=== PATIENT | male | born 1975 | race Caucasian/White ===

== ENCOUNTER 2017-06-29 19:53 | Inpatient (IN) | payer OTHER ==
[~2017-06-29] VITALS: Ht 172.7 cm; Wt 67.1 kg
[2017-06-29 19:55] VITALS: O2SAT 99
[2017-06-29] MEDS ORDERED: GENTAMICIN 80 MG PREMIX 100 ML ONE (19:58)
[2017-06-29] MEDS ORDERED: DIPHTH/TETANUS/ACEL PERTUSSIS (BOOSTER) 0.5 ML VIAL/PFS IM ONE (19:58)
[2017-06-29] MEDS ORDERED: ceFAZolin 2 GM PREMIX 50 ML ONE (19:58)
[2017-06-29] MEDS ORDERED: ROCURONIUM INJ 50 MG/5 ML VIAL ONE (20:14)
[2017-06-29] MEDS ORDERED: ETOMIDATE 20 MG/10 ML VIAL ONE (20:14)
[2017-06-29 20:15] LABS: AUTOMATED NEUTROPHIL # 7.6 TH/MM3 (1.8-7.7); BASOPHIL # 0.1 TH/MM3 (0-0.2); BASOPHIL % 1.1 % (0.0-2.0); EOSINOPHIL # 0.2 TH/MM3 (0-0.4); EOSINOPHIL % 1.3 % (0.0-4.0); HEMATOCRIT 45.6 % (39.0-51.0); HEMOGLOBIN 16.2 GM/DL (13.0-17.0); LYMPH % 37.7 % (9.0-44.0); LYMPHOCYTE # 5.2 TH/MM3 (1.0-4.8); MEAN CELL VOLUME 91.2 FL (80.0-100.0); MEAN CORPUSCULAR HEMOGLOBIN 32.4 PG (27.0-34.0); MEAN CORPUSCULAR HGB CONC 35.5 % (32.0-36.0); MEAN PLATELET VOLUME 7.8 FL (7.0-11.0); MONO % 5.5 % (0.0-8.0); MONOCYTE # 0.8 TH/MM3 (0-0.9); NEUT % 54.4 % (16.0-70.0); PLATELET COUNT 345 TH/MM3 (150-450); RED CELL DISTRIBUTION WIDTH 13.2 % (11.6-17.2); WHITE BLOOD COUNT 13.9 TH/MM3 (4.0-11.0)
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
[2017-06-29 20:39] VITALS: O2SAT 100
[2017-06-29 20:45] LABS: PROTHROMBIN TIME - PATIENT 10.5 SEC (9.8-11.6)
[2017-06-29] MEDS ORDERED: MISCELLANEOUS NURSING INFORMATION XX SCH (20:45)
[2017-06-29] MEDS ORDERED: LACTULOSE SYRUP 20 GM/30 ML CUP PO PRN (20:45)
[2017-06-29] MEDS ORDERED: MAGNESIUM HYDROXIDE SUSP 30 ML CUP PO PRN (20:45)
[2017-06-29] MEDS ORDERED: BISACODYL 10 MG SUPP RECTAL PRN (20:45)
[2017-06-29] MEDS ORDERED: fentaNYL DRIP 250 ML IV PRN ×3 (20:45→21:45)
[2017-06-29] MEDS ORDERED: CHLORHEXIDINE GLUCONATE 2 % 1 PACK (2 CLOTHS) TOP PRN (20:45)
[2017-06-29] MEDS ORDERED: SENNOSIDES 8.6 MG TAB PO PRN (20:45)
[2017-06-29] MEDS ORDERED: PROPOFOL 1000 MG/100 ML INJ 100 ML IV PRN ×3 (20:45→23:45)
[2017-06-29] MEDS ORDERED: IOHEXOL 350 MG/ML 10 ML VIAL (for RAD DIAG) IVCONTRAST ONE (20:53)
[2017-06-29] MEDS: DOCUSATE SODIUM 50 MG/SENNA 8.6 MG TAB PO SCH (21:00)
[2017-06-29 21:10] VITALS: O2SAT 100
[2017-06-29] MEDS ORDERED: POTASSIUM PHOSPHATE MONOBASIC 500 MG TAB PO PRN ×2 (21:15→21:45)
[2017-06-29] MEDS ORDERED: POTASSIUM PHOSPHATE INJ 30 MMOL in SODIUM CHLOR 0.9% 250 ML INJ 250 ML IV PRN ×2 (21:15→21:45)
[2017-06-29] MEDS ORDERED: POTASSIUM CHLOR 40 MEQ PREMIX 100 ML IV PRN ×4 (21:15→21:45)
[2017-06-29] MEDS ORDERED: MAGNESIUM SULFATE INJ 2 GM in SODIUM CHLORIDE 0.9% INJ 96 ML IV PRN ×2 (21:15→21:45)
[2017-06-29] MEDS ORDERED: SODIUM PHOSPHATE INJ 30 MMOL in SODIUM CHLOR 0.9% 250 ML INJ 240 ML IV PRN ×2 (21:15→21:45)
[2017-06-29] MEDS ORDERED: levETIRAcetam INJ 500 MG in SODIUM CHLORIDE 0.9% INJ 100 ML IV SCH (21:15)
[2017-06-29] MEDS ORDERED: MAGNESIUM SULFATE INJ 4 GM in SODIUM CHLORIDE 0.9% INJ 92 ML IV PRN ×2 (21:15→21:45)
[2017-06-29] MEDS ORDERED: MAGNESIUM OXIDE 400 MG TAB PO PRN ×2 (21:15→21:45)
[2017-06-29] MEDS ORDERED: POTASSIUM CHLOR 20 MEQ PREMIX 100 ML IV PRN ×3 (21:15→21:45)
[2017-06-29] MEDS ORDERED: POTASSIUM PHOSPHATE MONOBASIC 500 MG TAB PO/TUBE PRN ×2 (21:15→21:45)
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
[2017-06-29] MEDS ORDERED: POTASSIUM CHLORIDE 25 MEQ EFFERVESCENT TAB PO PRN (21:45)
[2017-06-29] MEDS ORDERED: MIDAZOLAM 100 MG/100 ML INJ 100 ML IV PRN (21:45)
[2017-06-29 22:00] VITALS: BP 109/58; PULSE 100; RESP 16; TEMP 97.7; O2SAT 100
[2017-06-29 22:10] LABS: MAGNESIUM 2.1 MG/DL (1.5-2.5); PHOSPHORUS 3.5 MG/DL (2.5-4.9)
[2017-06-29] MEDS: MIDAZOLAM 100 MG/100 ML INJ 100 ML IV PRN (23:12)
[2017-06-29] MEDS: fentaNYL DRIP 250 ML IV PRN (23:13)
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
[2017-06-29] MEDS ORDERED: PROPOFOL 1000 MG/100 ML IV PRN (23:30)
[2017-06-29] MEDS: levETIRAcetam INJ 500 MG in SODIUM CHLORIDE 0.9% INJ 100 ML IV SCH (23:36)
[2017-06-29] MEDS: FAMOTIDINE 20 MG/2 ML VIAL IV PUSH SCH (23:36)
[2017-06-29] MEDS: cefTRIAXone INJ 1,000 MG in SODIUM CHLORIDE 0.9% INJ 100 ML IV SCH (23:36)
[2017-06-30] VITALS (17 sets, daily range): BP systolic 95–108; BP diastolic 54–66; PULSE 68–90; RESP 16–20; TEMP 97.2–99.1; O2SAT 100
[2017-06-30] MEDS: PROPOFOL 1000 MG/100 ML INJ 100 ML IV PRN ×5 (00:20→21:19)
[2017-06-30] MEDS: SODIUM CHLOR 0.9% 1000 ML INJ 1,000 ML IV SCH ×2 (00:20→08:37)
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
[2017-06-30] MEDS ORDERED: SODIUM BICARBONATE 8.4% INJ 150 MEQ in DEXTROSE 5% IN WATE 1000ML INJ 1,000 ML IV SCH ×2 (02:00)
[2017-06-30] MEDS: CHLORHEXIDINE GLUCONATE 2 % 1 PACK (2 CLOTHS) TOP SCH (04:00)
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
[2017-06-30 05:23] LABS: AUTOMATED NEUTROPHIL # 9.3 TH/MM3 (1.8-7.7); BASOPHIL % 0.2 % (0.0-2.0); EOSINOPHIL % 0.4 % (0.0-4.0); HEMATOCRIT 39.7 % (39.0-51.0); HEMOGLOBIN 13.8 GM/DL (13.0-17.0); LYMPH % 15.8 % (9.0-44.0); MEAN CELL VOLUME 92.1 FL (80.0-100.0); MEAN CORPUSCULAR HEMOGLOBIN 32.1 PG (27.0-34.0); MEAN CORPUSCULAR HGB CONC 34.9 % (32.0-36.0); MEAN PLATELET VOLUME 7.9 FL (7.0-11.0); MONO % 10.6 % (0.0-8.0); MONOCYTE # 1.4 TH/MM3 (0-0.9); PLATELET COUNT 274 TH/MM3 (150-450); RED BLOOD COUNT 4.31 MIL/MM3 (4.50-5.90); RED CELL DISTRIBUTION WIDTH 13.2 % (11.6-17.2); WHITE BLOOD COUNT 12.7 TH/MM3 (4.0-11.0)
[2017-06-30 05:31] LABS: PROTHROMBIN TIME - PATIENT 10.6 SEC (9.8-11.6)
[2017-06-30 05:57] LABS: BICARBONATE 28.4 MEQ/L (21.0-32.0); CALCIUM 7.9 MG/DL (8.5-10.1); CREATININE 0.75 MG/DL (0.60-1.30); MAGNESIUM 1.9 MG/DL (1.5-2.5)
[2017-06-30] MEDS: POTASSIUM CHLOR 20 MEQ PREMIX 100 ML IV PRN ×2 (06:41→09:15)
[2017-06-30] MEDS: levETIRAcetam INJ 500 MG in SODIUM CHLORIDE 0.9% INJ 100 ML IV SCH ×2 (08:35→21:22)
[2017-06-30] MEDS: CHLORHEXIDINE 0.12% (ORAL KIT) 15 ML CUP MT SCH ×2 (08:36→20:00)
[2017-06-30] MEDS: FAMOTIDINE 20 MG/2 ML VIAL IV PUSH SCH ×2 (08:36→21:20)
[2017-06-30] MEDS: DOCUSATE SODIUM 50 MG/SENNA 8.6 MG TAB PO SCH ×2 (08:37→21:20)
[2017-06-30] MEDS ORDERED: RESP: ALBUTEROL 2.5 MG/IPRATROPIUM 0.5 MG NEB (PRN) NEB (08:45)
[2017-06-30] MEDS: RESP: ALBUTEROL 2.5 MG/IPRATROPIUM 0.5 MG NEB (SCH) NEB ×3 (09:38→20:33)
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
[2017-06-30] MEDS: cefTRIAXone INJ 1,000 MG in SODIUM CHLORIDE 0.9% INJ 100 ML IV SCH (11:55)
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
[2017-06-30] MEDS: SODIUM CHLORIDE 23.4% INJ 188 MEQ in SODIUM CHLOR 0.9% 1000 ML INJ 1,000 ML IV SCH (14:10)
[2017-06-30] MEDS: fentaNYL DRIP 250 ML IV PRN ×2 (14:11→14:13)
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
[2017-06-30] MEDS: MIDAZOLAM 100 MG/100 ML INJ 100 ML IV PRN (21:21)
[2017-07-01] VITALS (19 sets, daily range): BP systolic 96–104; BP diastolic 54–60; PULSE 66–86; RESP 20; TEMP 98.1–98.4; O2SAT 100
[2017-07-01] MEDS: cefTRIAXone INJ 1,000 MG in SODIUM CHLORIDE 0.9% INJ 100 ML IV SCH ×3 (00:54→23:08)
[2017-07-01] MEDS: CHLORHEXIDINE GLUCONATE 2 % 1 PACK (2 CLOTHS) TOP SCH (01:02)
[2017-07-01] MEDS: RESP: ALBUTEROL 2.5 MG/IPRATROPIUM 0.5 MG NEB (SCH) NEB ×4 (02:59→20:07)
[2017-07-01] MEDS: PROPOFOL 1000 MG/100 ML INJ 100 ML IV PRN ×5 (03:30→23:47)
--- NOTE | 2017-07-01 04:52 | RADRPT ---
EXAM DATE/TIME: 07/01/2017 03:01 [facility] COMPARISON: CHEST SINGLE AP, June 30, 2017, 2:48. INDICATIONS : Short of breath. MEDICAL HISTORY : None. SURGICAL HISTORY : None. ENCOUNTER: Subsequent ACUITY: 2 days PAIN SCORE: 0/10 LOCATION: Bilateral chest FINDINGS: ET tube tip well above the jorge. Gastric tube tip and side-port project within the stomach. The l ungs are symmetrically aerated and clear. The heart is normal in size. Both hemidiaphragms are obli que. CONCLUSION: The lungs are clear. Moses Ward MD on July 01, 2017 at 4:51 Board Certified Radiologist. This report was verified electronically.
[2017-07-01] MEDS: fentaNYL DRIP 250 ML IV PRN (06:01)
[2017-07-01] MEDS: CHLORHEXIDINE 0.12% (ORAL KIT) 15 ML CUP MT SCH ×2 (07:28→20:00)
[2017-07-01] MEDS: FAMOTIDINE 20 MG/2 ML VIAL IV PUSH SCH ×2 (09:42→20:52)
[2017-07-01] MEDS: levETIRAcetam INJ 500 MG in SODIUM CHLORIDE 0.9% INJ 100 ML IV SCH ×2 (09:43→20:52)
[2017-07-01] MEDS: DOCUSATE SODIUM 50 MG/SENNA 8.6 MG TAB PO SCH ×2 (09:43→20:52)
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
[2017-07-01] MEDS ORDERED: SODIUM CHLOR 0.9% 1000 ML INJ 1,000 ML IV ONE (10:30)
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
[2017-07-01 14:57] LABS: AUTOMATED NEUTROPHIL # 7.1 TH/MM3 (1.8-7.7); BASOPHIL % 0.3 % (0.0-2.0); EOSINOPHIL # 0.2 TH/MM3 (0-0.4); EOSINOPHIL % 2.1 % (0.0-4.0); HEMATOCRIT 36.6 % (39.0-51.0); HEMOGLOBIN 12.9 GM/DL (13.0-17.0); LYMPHOCYTE # 1.2 TH/MM3 (1.0-4.8); MEAN CELL VOLUME 92.6 FL (80.0-100.0); MEAN CORPUSCULAR HEMOGLOBIN 32.7 PG (27.0-34.0); MEAN CORPUSCULAR HGB CONC 35.3 % (32.0-36.0); MEAN PLATELET VOLUME 7.6 FL (7.0-11.0); MONO % 9.4 % (0.0-8.0); MONOCYTE # 0.9 TH/MM3 (0-0.9); NEUT % 75.2 % (16.0-70.0); PLATELET COUNT 229 TH/MM3 (150-450); RED BLOOD COUNT 3.95 MIL/MM3 (4.50-5.90); RED CELL DISTRIBUTION WIDTH 13.4 % (11.6-17.2); WHITE BLOOD COUNT 9.5 TH/MM3 (4.0-11.0)
[2017-07-01 15:18] LABS: ALBUMIN 2.6 GM/DL (3.4-5.0); ALT (GPT) 19 U/L (12-78); AST (GOT) 36 U/L (15-37); BICARBONATE 25.6 MEQ/L (21.0-32.0); BLOOD UREA NITROGEN 10 MG/DL (7-18); CALCIUM 7.9 MG/DL (8.5-10.1); CHLORIDE 115 MEQ/L (98-107); CREATININE 0.58 MG/DL (0.60-1.30); GLOMERULAR FILTRATION RATE 155 ML/MIN (>89); GLUCOSE,RANDOM 86 MG/DL (74-106); SODIUM (NA) 147 MEQ/L (136-145)
[2017-07-01 15:21] LABS: ALKALINE PHOSPHATASE 66 U/L (45-117); TOTAL BILIRUBIN ADULT 0.4 MG/DL (0.2-1.0); TOTAL PROTEIN 5.4 GM/DL (6.4-8.2)
[2017-07-01] MEDS: POTASSIUM CHLORIDE 20 MEQ PWD PACKET PO PRN (17:01)
[2017-07-01] MEDS: SODIUM CHLORIDE 23.4% INJ 188 MEQ in SODIUM CHLOR 0.9% 1000 ML INJ 1,000 ML IV SCH (17:15)
[2017-07-01] MEDS: SODIUM CHLOR 0.9% 1000 ML INJ 1,000 ML IV SCH (17:55)
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
[2017-07-02] VITALS (18 sets, daily range): BP systolic 104–138; BP diastolic 56–81; PULSE 80–130; RESP 20–22; TEMP 98–100.5; O2SAT 97–100
[2017-07-02] MEDS: RESP: ALBUTEROL 2.5 MG/IPRATROPIUM 0.5 MG NEB (SCH) NEB ×4 (03:14→20:46)
[2017-07-02] MEDS: SODIUM CHLOR 0.9% 1000 ML INJ 1,000 ML IV SCH ×3 (04:00→23:17)
[2017-07-02] MEDS: CHLORHEXIDINE GLUCONATE 2 % 1 PACK (2 CLOTHS) TOP SCH (04:00)
[2017-07-02] MEDS: PROPOFOL 1000 MG/100 ML INJ 100 ML IV PRN ×4 (04:15→17:44)
[2017-07-02 04:37] LABS: AUTOMATED NEUTROPHIL # 10.2 TH/MM3 (1.8-7.7); BASOPHIL % 0.4 % (0.0-2.0); EOSINOPHIL % 0.4 % (0.0-4.0); HEMATOCRIT 39.8 % (39.0-51.0); HEMOGLOBIN 13.6 GM/DL (13.0-17.0); LYMPH % 8.8 % (9.0-44.0); MEAN CELL VOLUME 92.8 FL (80.0-100.0); MEAN CORPUSCULAR HEMOGLOBIN 31.6 PG (27.0-34.0); MEAN CORPUSCULAR HGB CONC 34.1 % (32.0-36.0); MEAN PLATELET VOLUME 7.8 FL (7.0-11.0); MONO % 4.7 % (0.0-8.0); MONOCYTE # 0.6 TH/MM3 (0-0.9); NEUT % 85.7 % (16.0-70.0); PLATELET COUNT 235 TH/MM3 (150-450); RED BLOOD COUNT 4.29 MIL/MM3 (4.50-5.90); RED CELL DISTRIBUTION WIDTH 13.5 % (11.6-17.2); WHITE BLOOD COUNT 11.9 TH/MM3 (4.0-11.0)
[2017-07-02 05:03] LABS: ALBUMIN 2.8 GM/DL (3.4-5.0); ALT (GPT) 24 U/L (12-78); AST (GOT) 44 U/L (15-37); BICARBONATE 23.3 MEQ/L (21.0-32.0); BLOOD UREA NITROGEN 8 MG/DL (7-18); CALCIUM 8.2 MG/DL (8.5-10.1); CHLORIDE 115 MEQ/L (98-107); CREATININE 0.74 MG/DL (0.60-1.30); GLOMERULAR FILTRATION RATE 117 ML/MIN (>89); GLUCOSE,RANDOM 108 MG/DL (74-106); SODIUM (NA) 147 MEQ/L (136-145)
[2017-07-02 05:05] LABS: ALKALINE PHOSPHATASE 73 U/L (45-117); TOTAL BILIRUBIN ADULT 0.4 MG/DL (0.2-1.0); TOTAL PROTEIN 6.2 GM/DL (6.4-8.2)
--- NOTE | 2017-07-02 06:44 | RADRPT ---
EXAM DATE/TIME: 07/02/2017 05:01 [facility] COMPARISON: CHEST SINGLE AP, July 01, 2017, 3:01. INDICATIONS : Short of breath. MEDICAL HISTORY : None. SURGICAL HISTORY : None. ENCOUNTER: Subsequent ACUITY: 3 days PAIN SCORE: Non-responsive. LOCATION: Bilateral chest FINDINGS: ET tube well above the jorge. Gastric tube tip and side-port project within the stomach. Interval development of patchy non-consolidative infiltrates in the right infrahilar region. The left lung is clear. Both hemidiaphragms are well delineated. The heart is normal size. CONCLUSION: Interval development of patchy right infrahilar infiltrate. Moses Ward MD on July 02, 2017 at 6:42 Board Certified Radiologist. This report was verified electronically.
[2017-07-02] MEDS: CHLORHEXIDINE 0.12% (ORAL KIT) 15 ML CUP MT SCH ×2 (08:00→20:00)
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
[2017-07-02] MEDS: FAMOTIDINE 20 MG/2 ML VIAL IV PUSH SCH ×2 (08:29→20:59)
[2017-07-02] MEDS: levETIRAcetam INJ 500 MG in SODIUM CHLORIDE 0.9% INJ 100 ML IV SCH ×2 (08:29→20:59)
[2017-07-02] MEDS: MIDAZOLAM 100 MG/100 ML INJ 100 ML IV PRN (08:30)
[2017-07-02] MEDS: DOCUSATE SODIUM 50 MG/SENNA 8.6 MG TAB PO SCH ×2 (08:30→20:59)
[2017-07-02 10:16] LABS: BACTERIA, URINE RARE /hpf; BILIRUBIN, URINE NEG (NEG); BLOOD, URINE NEG (NEG); GLUCOSE,URINE NEG (NEG); KETONE, URINE 80 mg/dL (NEG); NITRITE,URINE NEG (NEG); PH, URINE 5.5 (5.0-8.5); URINE COLOR YELLOW (YELLW/STRAW); URINE LEUKOCYTE ESTERASE NEG (NEG)
--- NOTE | 2017-07-02 10:23 | RADRPT ---
EXAM DATE/TIME: 07/02/2017 09:57 [place] COMPARISON: CT BRAIN W/O CONTRAST, July 01, 2017, 12:56. INDICATIONS : Follow up trauma. RADIATION DOSE: 56.35 CTDIvol (mGy) MEDICAL HISTORY : None SURGICAL HISTORY : None. ENCOUNTER: Subsequent ACUITY: 3 days PAIN SCALE: Non-responsive LOCATION: cranial TECHNIQUE: Multiple contiguous axial images were obtained of the head. Using automated exposure control and adj ustment of the mA and/or kV according to patient size, radiation dose was kept as low as reasonably a chievable to obtain optimal diagnostic quality images. DICOM format image data is available electro nically for review and comparison. FINDINGS: Today's exam is compared to the prior study of 07/01/2017. There continues to be a hemorrhagic contusi ons involving the right frontal temporal lobe. The hemorrhagic contusions are stable with some surrou nding edema compared to the prior study. There continues to be some subarachnoid hemorrhage along the cervical vertex bilaterally. There is a small right-sided subdural which is stable measuring approxi mately 4 mm in width. This is overlying the right frontal temporal region. There is a stable left-yuki ed subdural hematoma. The widest portion measures approximately 8 mm along the left posterior parieta l region. There continues to be some droplets of intracranial air within the left-sided subdural thiago ajay adjacent to the left-sided skull fractures. The ventricles remain normal in size. There is no si gnificant mass effect or midline shift. The posterior fossa is stable and unremarkable. No new areas of hemorrhage are demonstrated. Compared to the prior exam there've been no new or significant change s. CONCLUSION: 1. Stable followup CT scan of the brain compared to the prior exam of 07/01/2017. 2. The hemorrhagic contusions involving the right frontal temporal lobe are stable. 3. The small bilateral subdural hematomas are stable 4. No new areas of intracranial hemorrhage are demonstrated. Hermilo Bojorquez MD on July 02, 2017 at 10:15 Board Certified Radiologist. This report was verified electronically.
[2017-07-02] MEDS: BACITRACIN TOP OINT 15 GM TUBE TOPICAL SCH ×2 (10:45→20:59)
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
--- NOTE | 2017-07-02 12:19 | ECHRPT ---
Indication: S/P TRAUMA CONCLUSIONS Normal left ventricular size. Wall thickness is normal. The left ventricular systolic function is normal with an estimated ejection fraction in the range of 60-65%. BP: 97 / 54 HR: 68 Rhythm: Sinus MEASUREMENTS (Male / Female) Normal Values Technical Quality:Fair 2D ECHO LV Diastolic Diameter PLAX 4.6 cm 4.2 - 5.9 / 3.9 - 5.3 cm LV Systolic Diameter PLAX 3.3 cm IVS Diastolic Thickness 1.0 cm 0.6 - 1.0 / 0.6 - 0.9 cm LVPW Diastolic Thickness 1.0 cm 0.6 - 1.0 / 0.6 - 0.9 cm LV Relative Wall Thickness 0.4 RV Internal Dim ED PLAX 2.5 cm LVOT Diameter 1.7 cm Aortic Root Diameter 2.8 cm LA Systolic Diameter LX 2.6 cm 3.0 - 4.0 / 2.7 - 3.8 cm DOPPLER AV Peak Velocity 149.0 cm/s AV Peak Gradient 8.9 mmHg AV Mean Gradient 4.0 mmHg AV Velocity Time Integral 21.0 cm LVOT Peak Velocity 131.0 cm/s LVOT Peak Gradient 6.9 mmHg LVOT Velocity Time Integral 19.2 cm AV Area Cont Eq vti 2.1 cm AV Area Cont Eq pk 2.0 cm Mitral E Point Velocity 118.0 cm/s Mitral A Point Velocity 70.1 cm/s Mitral E to A Ratio 1.7 LV E' Lateral Velocity 21.2 cm/s Mitral E to LV E' Lateral Ratio 5.6 LV E' Septal Velocity 14.6 cm/s Mitral E to LV E' Septal Ratio 8.1 PV Peak Velocity 82.0 cm/s PV Peak Gradient 2.7 mmHg FINDINGS LEFT VENTRICLE Normal left ventricular size. Wall thickness is normal. The left ventricular systolic function is normal with an estimated ejection fraction in the range of 60-65%. RIGHT VENTRICLE The right ventricular size is normal. LEFT ATRIUM The left atrial size is normal. RIGHT ATRIUM The right atrial size is normal. ATRIAL SEPTUM No atrial level shunt is demonstrated by color flow Doppler interrogation. AORTA The aortic root and proximal ascending aorta are not well visualized. MITRAL VALVE Structurally normal mitral valve. No mitral valve stenosis or regurgitation. AORTIC VALVE Trileaflet aortic valve. No aortic valve stenosis or regurgitation. TRICUSPID VALVE Structurally normal tricuspid valve. No tricuspid valve stenosis or regurgitation. PULMONARY VALVE No pulmonary valve regurgitation or stenosis. VESSELS The inferior vena cava is normal in size. PERICARDIUM No pericardial effusion. Lei Purvis MD, FACC (Electronically Signed) Final Date:02 July 2017 12:18
[2017-07-02] MEDS: cefTRIAXone INJ 1,000 MG in SODIUM CHLORIDE 0.9% INJ 100 ML IV SCH ×2 (12:24→23:15)
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
[2017-07-02] MEDS: SODIUM CHLORIDE 23.4% INJ 188 MEQ in SODIUM CHLOR 0.9% 1000 ML INJ 1,000 ML IV SCH (17:00)
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
[2017-07-03] VITALS (17 sets, daily range): BP systolic 109–139; BP diastolic 8–81; PULSE 52–104; RESP 13–24; TEMP 98.4–99.2; O2SAT 95–100
[2017-07-03] MEDS: PROPOFOL 1000 MG/100 ML INJ 100 ML IV PRN ×4 (00:45→16:41)
[2017-07-03] MEDS: CHLORHEXIDINE GLUCONATE 2 % 1 PACK (2 CLOTHS) TOP SCH (02:41)
[2017-07-03] MEDS: RESP: ALBUTEROL 2.5 MG/IPRATROPIUM 0.5 MG NEB (SCH) NEB ×3 (03:56→14:40)
[2017-07-03] MEDS: fentaNYL DRIP 250 ML IV PRN ×2 (04:51→16:41)
--- NOTE | 2017-07-03 05:58 | RADRPT ---
EXAM DATE/TIME: 07/03/2017 04:38 [place] COMPARISON: CHEST SINGLE AP, July 02, 2017, 5:01. INDICATIONS : Shortness of breath. MEDICAL HISTORY : None. SURGICAL HISTORY : None. ENCOUNTER: Subsequent ACUITY: 4 - 6 days PAIN SCORE: Non-responsive. LOCATION: Bilateral chest FINDINGS: ET tube tip well above the jorge. Gastric tube tip and side-port project within the stomach. There is increasing consolidation in the left and lower lung with loss of delineation of the medial left h emidiaphragm. Patchy infiltrates in the right perihilar region have also increased. CONCLUSION: Increasing infiltrates in bilateral hilar region and left lower lobe. Moses Ward MD on July 03, 2017 at 5:55 Board Certified Radiologist. This report was verified electronically.
[2017-07-03 06:06] LABS: AUTOMATED NEUTROPHIL # 10.7 TH/MM3 (1.8-7.7); BASOPHIL % 0.3 % (0.0-2.0); EOSINOPHIL # 0.1 TH/MM3 (0-0.4); EOSINOPHIL % 0.6 % (0.0-4.0); HEMATOCRIT 33.4 % (39.0-51.0); HEMOGLOBIN 11.6 GM/DL (13.0-17.0); LYMPH % 9.5 % (9.0-44.0); LYMPHOCYTE # 1.2 TH/MM3 (1.0-4.8); MEAN CELL VOLUME 92.6 FL (80.0-100.0); MEAN CORPUSCULAR HEMOGLOBIN 32.3 PG (27.0-34.0); MEAN CORPUSCULAR HGB CONC 34.9 % (32.0-36.0); MONO % 6.7 % (0.0-8.0); MONOCYTE # 0.9 TH/MM3 (0-0.9); NEUT % 82.9 % (16.0-70.0); PLATELET COUNT 220 TH/MM3 (150-450); RED CELL DISTRIBUTION WIDTH 13.3 % (11.6-17.2)
[2017-07-03 06:31] LABS: ALBUMIN 2.2 GM/DL (3.4-5.0); ALT (GPT) 33 U/L (12-78); AST (GOT) 52 U/L (15-37); BICARBONATE 23.9 MEQ/L (21.0-32.0); CHLORIDE 116 MEQ/L (98-107); CREATININE 0.63 MG/DL (0.60-1.30); GLOMERULAR FILTRATION RATE 141 ML/MIN (>89); GLUCOSE,RANDOM 142 MG/DL (74-106); SODIUM (NA) 147 MEQ/L (136-145)
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
[2017-07-03 06:38] LABS: ALKALINE PHOSPHATASE 77 U/L (45-117); BLOOD UREA NITROGEN 8 MG/DL (7-18); TOTAL BILIRUBIN ADULT 0.4 MG/DL (0.2-1.0); TOTAL PROTEIN 5.6 GM/DL (6.4-8.2)
[2017-07-03] MEDS: CHLORHEXIDINE 0.12% (ORAL KIT) 15 ML CUP MT SCH ×2 (08:00→20:00)
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
[2017-07-03] MEDS: MAGNESIUM HYDROXIDE SUSP 30 ML CUP PO SCH ×3 (09:00→21:20)
[2017-07-03] MEDS: BACITRACIN TOP OINT 15 GM TUBE TOPICAL SCH ×2 (09:00→21:00)
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
[2017-07-03] MEDS ORDERED: HALOPERIDOL LACTATE 5 MG/ML AMP IV PRN (10:15)
[2017-07-03] MEDS: LACTULOSE SYRUP 20 GM/30 ML CUP PO SCH (10:50)
[2017-07-03] MEDS: DOCUSATE SODIUM 50 MG/SENNA 8.6 MG TAB PO SCH ×2 (10:50→21:00)
[2017-07-03] MEDS: cefTRIAXone INJ 1,000 MG in SODIUM CHLORIDE 0.9% INJ 100 ML IV SCH (10:50)
[2017-07-03] MEDS: FAMOTIDINE 20 MG/2 ML VIAL IV PUSH SCH ×2 (10:50→21:20)
[2017-07-03] MEDS: levETIRAcetam INJ 500 MG in SODIUM CHLORIDE 0.9% INJ 100 ML IV SCH ×2 (10:51→21:19)
[2017-07-03] MEDS: VALPROIC ACID SYRUP 250 MG/5 ML UDC PO SCH ×2 (10:53→21:20)
[2017-07-03] MEDS: SODIUM CHLORIDE 23.4% INJ 188 MEQ in SODIUM CHLOR 0.9% 1000 ML INJ 1,000 ML IV SCH (15:00)
[2017-07-03] MEDS: QUEtiapine FUMARATE 25 MG TAB PO SCH ×2 (15:11→21:21)
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
[2017-07-04] VITALS (17 sets, daily range): BP systolic 113–127; BP diastolic 55–69; PULSE 56–82; RESP 12–20; TEMP 98–100.5; O2SAT 94–100
[2017-07-04] MEDS: cefTRIAXone INJ 1,000 MG in SODIUM CHLORIDE 0.9% INJ 100 ML IV SCH ×3 (01:00→23:51)
[2017-07-04] MEDS: PROPOFOL 1000 MG/100 ML INJ 100 ML IV PRN ×3 (01:53→18:30)
[2017-07-04] MEDS: RESP: ALBUTEROL 2.5 MG/IPRATROPIUM 0.5 MG NEB (SCH) NEB ×2 (03:32→07:57)
[2017-07-04] MEDS: CHLORHEXIDINE GLUCONATE 2 % 1 PACK (2 CLOTHS) TOP SCH (03:53)
--- NOTE | 2017-07-04 04:02 | RADRPT ---
EXAM DATE/TIME: 07/04/2017 02:49 [place] COMPARISON: CHEST SINGLE AP, July 03, 2017, 4:38. INDICATIONS : Follow up trauma. Short of breath. MEDICAL HISTORY : None. SURGICAL HISTORY : None. ENCOUNTER: Subsequent ACUITY: 4 - 6 days PAIN SCORE: Non-responsive. LOCATION: Bilateral chest FINDINGS: ET tube tip well above the jorge. Gastric tube tip and side-port project within the stomach. There is persistent bilateral lower lobe consolidation, stable from prior. There is also loss of delineat ion of the right hemidiaphragm suggesting coexistent pleural effusion. The heart is normal size. CONCLUSION: Persistent left lower lung consolidation and increasing opacity in the right lower lung suggesting in creasing pleural effusion. Moses Ward MD on July 04, 2017 at 3:59 Board Certified Radiologist. This report was verified electronically.
[2017-07-04 05:01] LABS: AUTOMATED NEUTROPHIL # 10.9 TH/MM3 (1.8-7.7); BASOPHIL % 0.3 % (0.0-2.0); EOSINOPHIL # 0.2 TH/MM3 (0-0.4); EOSINOPHIL % 1.2 % (0.0-4.0); HEMATOCRIT 34.3 % (39.0-51.0); HEMOGLOBIN 11.7 GM/DL (13.0-17.0); LYMPH % 9.6 % (9.0-44.0); LYMPHOCYTE # 1.3 TH/MM3 (1.0-4.8); MEAN CELL VOLUME 93.4 FL (80.0-100.0); MEAN CORPUSCULAR HEMOGLOBIN 31.9 PG (27.0-34.0); MEAN CORPUSCULAR HGB CONC 34.1 % (32.0-36.0); MEAN PLATELET VOLUME 8.1 FL (7.0-11.0); MONO % 5.7 % (0.0-8.0); MONOCYTE # 0.7 TH/MM3 (0-0.9); NEUT % 83.2 % (16.0-70.0); PLATELET COUNT 224 TH/MM3 (150-450); RED BLOOD COUNT 3.67 MIL/MM3 (4.50-5.90); RED CELL DISTRIBUTION WIDTH 13.4 % (11.6-17.2); WHITE BLOOD COUNT 13.1 TH/MM3 (4.0-11.0)
[2017-07-04 05:27] LABS: ALBUMIN 2.1 GM/DL (3.4-5.0); AST (GOT) 58 U/L (15-37); BLOOD UREA NITROGEN 10 MG/DL (7-18); CHLORIDE 114 MEQ/L (98-107); GLOMERULAR FILTRATION RATE 149 ML/MIN (>89); GLUCOSE,RANDOM 172 MG/DL (74-106); SODIUM (NA) 149 MEQ/L (136-145)
[2017-07-04 05:30] LABS: ALKALINE PHOSPHATASE 86 U/L (45-117); ALT (GPT) 60 U/L (12-78); TOTAL BILIRUBIN ADULT 0.3 MG/DL (0.2-1.0); TOTAL PROTEIN 5.7 GM/DL (6.4-8.2)
[2017-07-04] MEDS: QUEtiapine FUMARATE 25 MG TAB PO SCH ×3 (06:22→21:33)
[2017-07-04] MEDS: MIDAZOLAM 100 MG/100 ML INJ 100 ML IV PRN (07:07)
[2017-07-04] MEDS: fentaNYL DRIP 250 ML IV PRN (07:09)
[2017-07-04] MEDS: CHLORHEXIDINE 0.12% (ORAL KIT) 15 ML CUP MT SCH ×2 (08:00→20:00)
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
[2017-07-04] MEDS: levETIRAcetam INJ 500 MG in SODIUM CHLORIDE 0.9% INJ 100 ML IV SCH ×2 (09:00→21:33)
[2017-07-04] MEDS: MAGNESIUM HYDROXIDE SUSP 30 ML CUP PO SCH ×2 (09:00→21:34)
[2017-07-04] MEDS: BACITRACIN TOP OINT 15 GM TUBE TOPICAL SCH ×2 (09:00→21:35)
[2017-07-04] MEDS: FAMOTIDINE 20 MG/2 ML VIAL IV PUSH SCH ×2 (10:00→21:32)
[2017-07-04] MEDS: LACTULOSE SYRUP 20 GM/30 ML CUP PO SCH (10:00)
[2017-07-04] MEDS: VALPROIC ACID SYRUP 250 MG/5 ML UDC PO SCH ×2 (10:00→21:34)
[2017-07-04] MEDS: DOCUSATE SODIUM 50 MG/SENNA 8.6 MG TAB PO SCH ×2 (10:01→21:32)
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
[2017-07-04] MEDS: ENOXAPARIN SODIUM 40 MG/0.4 ML SYRINGE SQ SCH (13:21)
[2017-07-04] MEDS: SODIUM CHLORIDE 23.4% INJ 188 MEQ in SODIUM CHLOR 0.9% 1000 ML INJ 1,000 ML IV SCH (15:00)
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
[2017-07-05] VITALS (19 sets, daily range): BP systolic 119–140; BP diastolic 63–73; PULSE 47–85; RESP 20; TEMP 98.6–100.3; O2SAT 94–100
[2017-07-05] MEDS: fentaNYL DRIP 250 ML IV PRN ×2 (00:18→18:28)
[2017-07-05] MEDS: PROPOFOL 1000 MG/100 ML INJ 100 ML IV PRN ×4 (00:18→19:10)
[2017-07-05] MEDS: POTASSIUM CHLORIDE 20 MEQ PWD PACKET PO PRN (02:21)
[2017-07-05] MEDS: CHLORHEXIDINE GLUCONATE 2 % 1 PACK (2 CLOTHS) TOP SCH (04:00)
--- NOTE | 2017-07-05 04:48 | RADRPT ---
EXAM DATE/TIME: 07/05/2017 03:15 [facility] COMPARISON: CHEST SINGLE AP, July 04, 2017, 2:49. INDICATIONS : Follow up trauma, pleural effusion. MEDICAL HISTORY : None. SURGICAL HISTORY : None. ENCOUNTER: Subsequent ACUITY: 1 week PAIN SCORE: Non-responsive. LOCATION: Bilateral chest FINDINGS: A single AP semierect portable view of the chest was obtained and again demonstrates the endotracheal tube in place with the tip 3 cm above the jorge. The nasogastric tube remains in place. Hazy perihi lar and bibasilar opacities remain without change. The heart size is within normal limits. There is n o visualized pneumothorax. Multiple overlying electrocardiogram leads and oxygen tubing are noted. CONCLUSION: No significant change. Galen Francis MD on July 05, 2017 at 4:45 Board Certified Radiologist. This report was verified electronically.
[2017-07-05 04:58] LABS: AUTOMATED NEUTROPHIL # 8.9 TH/MM3 (1.8-7.7); BASOPHIL % 0.3 % (0.0-2.0); EOSINOPHIL # 0.4 TH/MM3 (0-0.4); EOSINOPHIL % 3.2 % (0.0-4.0); HEMATOCRIT 32.6 % (39.0-51.0); HEMOGLOBIN 11.2 GM/DL (13.0-17.0); LYMPHOCYTE # 1.8 TH/MM3 (1.0-4.8); MEAN CELL VOLUME 92.9 FL (80.0-100.0); MEAN CORPUSCULAR HEMOGLOBIN 31.9 PG (27.0-34.0); MEAN CORPUSCULAR HGB CONC 34.3 % (32.0-36.0); MEAN PLATELET VOLUME 8.2 FL (7.0-11.0); MONO % 8.9 % (0.0-8.0); MONOCYTE # 1.1 TH/MM3 (0-0.9); NEUT % 72.6 % (16.0-70.0); PLATELET COUNT 243 TH/MM3 (150-450); RED BLOOD COUNT 3.52 MIL/MM3 (4.50-5.90); RED CELL DISTRIBUTION WIDTH 13.7 % (11.6-17.2); WHITE BLOOD COUNT 12.2 TH/MM3 (4.0-11.0)
[2017-07-05 05:22] LABS: AST (GOT) 49 U/L (15-37); BICARBONATE 25.5 MEQ/L (21.0-32.0); BLOOD UREA NITROGEN 12 MG/DL (7-18); CHLORIDE 116 MEQ/L (98-107); GLOMERULAR FILTRATION RATE 149 ML/MIN (>89); GLUCOSE,RANDOM 109 MG/DL (74-106); SODIUM (NA) 150 MEQ/L (136-145)
[2017-07-05 05:23] LABS: ALT (GPT) 59 U/L (12-78)
[2017-07-05 05:25] LABS: ALKALINE PHOSPHATASE 98 U/L (45-117); TOTAL BILIRUBIN ADULT 0.3 MG/DL (0.2-1.0); TOTAL PROTEIN 5.9 GM/DL (6.4-8.2)
[2017-07-05] MEDS: QUEtiapine FUMARATE 25 MG TAB PO SCH (06:02)
[2017-07-05] MEDS: CHLORHEXIDINE 0.12% (ORAL KIT) 15 ML CUP MT SCH ×2 (08:00→20:02)
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
[2017-07-05] MEDS: FAMOTIDINE 20 MG/2 ML VIAL IV PUSH SCH ×2 (08:57→20:09)
[2017-07-05] MEDS: VALPROIC ACID SYRUP 250 MG/5 ML UDC PO SCH ×2 (08:57→20:09)
[2017-07-05] MEDS: LACTULOSE SYRUP 20 GM/30 ML CUP PO SCH (08:57)
[2017-07-05] MEDS: MAGNESIUM HYDROXIDE SUSP 30 ML CUP PO SCH ×2 (08:57→20:10)
[2017-07-05] MEDS: DOCUSATE SODIUM 50 MG/SENNA 8.6 MG TAB PO SCH ×2 (08:57→20:10)
[2017-07-05] MEDS: levETIRAcetam INJ 500 MG in SODIUM CHLORIDE 0.9% INJ 100 ML IV SCH ×2 (08:57→20:09)
[2017-07-05] MEDS: BACITRACIN TOP OINT 15 GM TUBE TOPICAL SCH ×2 (09:00→20:10)
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
[2017-07-05] MEDS ORDERED: MIDAZOLAM HCL 5 MG/ML VIAL (1 ML) ONE (11:29)
[2017-07-05] MEDS: CEFEPIME INJ 2,000 MG in SODIUM CHLORIDE 0.9% INJ 100 ML IV SCH ×2 (11:44→22:17)
[2017-07-05] MEDS ORDERED: MIDAZOLAM HCL 2 MG/2 ML VIAL IV PUSH ONE (12:15)
[2017-07-05] MEDS: QUEtiapine FUMARATE 100 MG TAB PO SCH ×2 (14:00→21:14)
[2017-07-05] MEDS: SODIUM CHLORIDE 23.4% INJ 188 MEQ in SODIUM CHLOR 0.9% 1000 ML INJ 1,000 ML IV SCH (15:00)
[2017-07-05] MEDS: ENOXAPARIN SODIUM 40 MG/0.4 ML SYRINGE SQ SCH (15:58)
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
--- NOTE | 2017-07-05 18:26 | EKG ---
Date Performed: 07/05/2017 Time Performed: 11:00:12 PTAGE: 41 years EKG: Sinus rhythm Inferior/lateral ST-T changes are nonspecific Borderline ECG NO PREVIOUS TRACING DOCTOR: Juan Carlos Levy Interpretating Date/Time 07/05/2017 18:25:34
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
[2017-07-05] MEDS: HALOPERIDOL LACTATE 5 MG/ML AMP IV PRN (22:18)
[2017-07-06] VITALS (14 sets, daily range): BP systolic 113–147; BP diastolic 55–88; PULSE 54–76; RESP 11–22; TEMP 98.4–101.2; O2SAT 94–100
[2017-07-06] MEDS: CHLORHEXIDINE GLUCONATE 2 % 1 PACK (2 CLOTHS) TOP SCH (04:00)
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
[2017-07-06 05:40] LABS: AUTOMATED NEUTROPHIL # 6.2 TH/MM3 (1.8-7.7); BASOPHIL % 0.4 % (0.0-2.0); EOSINOPHIL # 0.3 TH/MM3 (0-0.4); EOSINOPHIL % 2.8 % (0.0-4.0); HEMATOCRIT 32.9 % (39.0-51.0); HEMOGLOBIN 11.3 GM/DL (13.0-17.0); LYMPH % 21.3 % (9.0-44.0); LYMPHOCYTE # 2.1 TH/MM3 (1.0-4.8); MEAN CELL VOLUME 93.7 FL (80.0-100.0); MEAN CORPUSCULAR HEMOGLOBIN 32.1 PG (27.0-34.0); MEAN CORPUSCULAR HGB CONC 34.2 % (32.0-36.0); MEAN PLATELET VOLUME 7.7 FL (7.0-11.0); MONO % 12.1 % (0.0-8.0); MONOCYTE # 1.2 TH/MM3 (0-0.9); NEUT % 63.4 % (16.0-70.0); PLATELET COUNT 247 TH/MM3 (150-450); RED BLOOD COUNT 3.51 MIL/MM3 (4.50-5.90); RED CELL DISTRIBUTION WIDTH 13.5 % (11.6-17.2); WHITE BLOOD COUNT 9.8 TH/MM3 (4.0-11.0)
[2017-07-06 05:57] LABS: ALT (GPT) 76 U/L (12-78); AST (GOT) 58 U/L (15-37); BICARBONATE 27.6 MEQ/L (21.0-32.0); BLOOD UREA NITROGEN 12 MG/DL (7-18); CALCIUM 8.2 MG/DL (8.5-10.1); CHLORIDE 116 MEQ/L (98-107); CREATININE 0.54 MG/DL (0.60-1.30); GLOMERULAR FILTRATION RATE 169 ML/MIN (>89); GLUCOSE,RANDOM 108 MG/DL (74-106); SODIUM (NA) 151 MEQ/L (136-145)
[2017-07-06 05:59] LABS: ALKALINE PHOSPHATASE 82 U/L (45-117); TOTAL BILIRUBIN ADULT 0.3 MG/DL (0.2-1.0); TOTAL PROTEIN 5.9 GM/DL (6.4-8.2)
[2017-07-06] MEDS: PROPOFOL 1000 MG/100 ML INJ 100 ML IV PRN ×4 (06:07→20:17)
[2017-07-06] MEDS: QUEtiapine FUMARATE 100 MG TAB PO SCH ×3 (06:47→21:29)
[2017-07-06] MEDS: CHLORHEXIDINE 0.12% (ORAL KIT) 15 ML CUP MT SCH ×2 (08:00→20:13)
[2017-07-06] MEDS: BACITRACIN TOP OINT 15 GM TUBE TOPICAL SCH ×2 (09:00→20:14)
[2017-07-06] MEDS: MAGNESIUM HYDROXIDE SUSP 30 ML CUP PO SCH ×2 (09:48→20:14)
[2017-07-06] MEDS: VALPROIC ACID SYRUP 250 MG/5 ML UDC PO SCH ×2 (09:49→20:13)
[2017-07-06] MEDS: levETIRAcetam INJ 500 MG in SODIUM CHLORIDE 0.9% INJ 100 ML IV SCH ×2 (09:49→20:13)
[2017-07-06] MEDS: DOCUSATE SODIUM 50 MG/SENNA 8.6 MG TAB PO SCH ×2 (09:49→20:14)
[2017-07-06] MEDS: LACTULOSE SYRUP 20 GM/30 ML CUP PO SCH (09:49)
[2017-07-06] MEDS: CEFEPIME INJ 2,000 MG in SODIUM CHLORIDE 0.9% INJ 100 ML IV SCH ×2 (09:55→22:10)
[2017-07-06] MEDS: FAMOTIDINE 20 MG/2 ML VIAL IV PUSH SCH ×2 (09:55→20:13)
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
[2017-07-06] MEDS: fentaNYL DRIP 250 ML IV PRN (10:07)
[2017-07-06] MEDS: SODIUM CHLORIDE 23.4% INJ 188 MEQ in SODIUM CHLOR 0.9% 1000 ML INJ 1,000 ML IV SCH (12:15)
[2017-07-06] MEDS: ENOXAPARIN SODIUM 40 MG/0.4 ML SYRINGE SQ SCH (13:31)
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
[2017-07-07] VITALS (18 sets, daily range): BP systolic 119–144; BP diastolic 58–78; PULSE 55–75; RESP 20; TEMP 99.1–100.9; O2SAT 95–100
[2017-07-07] MEDS: PROPOFOL 1000 MG/100 ML INJ 100 ML IV PRN ×5 (02:20→20:20)
[2017-07-07] MEDS: CHLORHEXIDINE GLUCONATE 2 % 1 PACK (2 CLOTHS) TOP SCH (03:07)
[2017-07-07] MEDS: QUEtiapine FUMARATE 100 MG TAB PO SCH ×3 (06:10→22:10)
[2017-07-07] MEDS: fentaNYL DRIP 250 ML IV PRN (06:10)
[2017-07-07 06:17] LABS: AUTOMATED NEUTROPHIL # 8.1 TH/MM3 (1.8-7.7); BASOPHIL % 0.3 % (0.0-2.0); EOSINOPHIL # 0.3 TH/MM3 (0-0.4); EOSINOPHIL % 2.9 % (0.0-4.0); HEMOGLOBIN 11.1 GM/DL (13.0-17.0); LYMPH % 16.9 % (9.0-44.0); MEAN CELL VOLUME 92.9 FL (80.0-100.0); MEAN CORPUSCULAR HEMOGLOBIN 31.4 PG (27.0-34.0); MEAN CORPUSCULAR HGB CONC 33.8 % (32.0-36.0); MONO % 10.7 % (0.0-8.0); MONOCYTE # 1.3 TH/MM3 (0-0.9); NEUT % 69.2 % (16.0-70.0); PLATELET COUNT 267 TH/MM3 (150-450); RED BLOOD COUNT 3.55 MIL/MM3 (4.50-5.90); RED CELL DISTRIBUTION WIDTH 13.8 % (11.6-17.2); WHITE BLOOD COUNT 11.8 TH/MM3 (4.0-11.0)
[2017-07-07 06:39] LABS: BICARBONATE 27.4 MEQ/L (21.0-32.0); CALCIUM 8.3 MG/DL (8.5-10.1); CREATININE 0.59 MG/DL (0.60-1.30)
[2017-07-07] MEDS: CHLORHEXIDINE 0.12% (ORAL KIT) 15 ML CUP MT SCH ×2 (07:55→20:03)
[2017-07-07] MEDS: levETIRAcetam INJ 500 MG in SODIUM CHLORIDE 0.9% INJ 100 ML IV SCH (08:53)
[2017-07-07] MEDS: VALPROIC ACID SYRUP 250 MG/5 ML UDC PO SCH ×2 (08:53→20:30)
[2017-07-07] MEDS: LACTULOSE SYRUP 20 GM/30 ML CUP PO SCH (08:53)
[2017-07-07] MEDS: MAGNESIUM HYDROXIDE SUSP 30 ML CUP PO SCH ×2 (08:53→20:30)
[2017-07-07] MEDS: BACITRACIN TOP OINT 15 GM TUBE TOPICAL SCH ×2 (08:53→20:30)
[2017-07-07] MEDS: DOCUSATE SODIUM 50 MG/SENNA 8.6 MG TAB PO SCH ×2 (08:53→20:29)
[2017-07-07] MEDS: FAMOTIDINE 20 MG/2 ML VIAL IV PUSH SCH ×2 (08:53→20:30)
[2017-07-07] MEDS: HALOPERIDOL LACTATE 5 MG/ML AMP IV PRN (09:05)
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
[2017-07-07] MEDS: CEFEPIME INJ 2,000 MG in SODIUM CHLORIDE 0.9% INJ 100 ML IV SCH ×2 (13:09→22:10)
[2017-07-07] MEDS: ENOXAPARIN SODIUM 40 MG/0.4 ML SYRINGE SQ SCH (13:10)
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
[2017-07-07] MEDS: SODIUM CHLORIDE 23.4% INJ 188 MEQ in SODIUM CHLOR 0.9% 1000 ML INJ 1,000 ML IV SCH (15:00)
[2017-07-08] VITALS (16 sets, daily range): BP systolic 114–121; BP diastolic 59–74; PULSE 57–88; RESP 19–26; TEMP 98.4–99.3; O2SAT 90–100
[2017-07-08] MEDS: CHLORHEXIDINE GLUCONATE 2 % 1 PACK (2 CLOTHS) TOP SCH (04:00)
[2017-07-08 05:50] LABS: AUTOMATED NEUTROPHIL # 7.5 TH/MM3 (1.8-7.7); BASOPHIL # 0.1 TH/MM3 (0-0.2); BASOPHIL % 0.5 % (0.0-2.0); EOSINOPHIL # 0.3 TH/MM3 (0-0.4); HEMATOCRIT 32.4 % (39.0-51.0); HEMOGLOBIN 10.9 GM/DL (13.0-17.0); LYMPH % 20.6 % (9.0-44.0); LYMPHOCYTE # 2.4 TH/MM3 (1.0-4.8); MEAN CELL VOLUME 93.5 FL (80.0-100.0); MEAN CORPUSCULAR HEMOGLOBIN 31.5 PG (27.0-34.0); MEAN CORPUSCULAR HGB CONC 33.7 % (32.0-36.0); MEAN PLATELET VOLUME 8.3 FL (7.0-11.0); MONO % 10.7 % (0.0-8.0); MONOCYTE # 1.2 TH/MM3 (0-0.9); NEUT % 65.2 % (16.0-70.0); PLATELET COUNT 296 TH/MM3 (150-450); RED BLOOD COUNT 3.47 MIL/MM3 (4.50-5.90); RED CELL DISTRIBUTION WIDTH 13.5 % (11.6-17.2); WHITE BLOOD COUNT 11.6 TH/MM3 (4.0-11.0)
[2017-07-08 05:55] LABS: CALCIUM 8.3 MG/DL (8.5-10.1); CREATININE 0.58 MG/DL (0.60-1.30)
--- NOTE | 2017-07-08 06:21 | RADRPT ---
EXAM DATE/TIME: 07/08/2017 04:55 [facility] COMPARISON: CHEST SINGLE AP, July 06, 2017, 2:48. INDICATIONS : Short of breath. MEDICAL HISTORY : None. SURGICAL HISTORY : None. ENCOUNTER: Subsequent ACUITY: 1 week PAIN SCORE: 0/10 LOCATION: Bilateral chest FINDINGS: A single view of the chest demonstrates bibasilar densities. Heart normal size. Endotracheal tube and nasogastric tube unchanged in position. The cardiomediastinal contours are unremarkable. Osseous st ructures are intact. CONCLUSION: Persistent bibasilar densities. Jose Gomez MD on July 08, 2017 at 6:17 Board Certified Radiologist. This report was verified electronically.
[2017-07-08] MEDS: QUEtiapine FUMARATE 100 MG TAB PO SCH ×3 (06:25→22:00)
[2017-07-08 07:34] LABS: BANDS 12 % (0-6); BASOPHILS 1 % (0-2); LYMPHOCYTES 17 % (9-44); MONOCYTES 10 % (0-8); MYELOCYTES 2 % (0-0); NEUTROPHIL # MANUAL DIFF 8.1 TH/MM3 (1.8-7.7); POLYS (SEG NEUTROPHILS) 56 % (16-70)
[2017-07-08] MEDS: PROPOFOL 1000 MG/100 ML INJ 100 ML IV PRN (08:00)
[2017-07-08] MEDS: LACTULOSE SYRUP 20 GM/30 ML CUP PO SCH (08:01)
[2017-07-08] MEDS: FAMOTIDINE 20 MG/2 ML VIAL IV PUSH SCH (08:01)
[2017-07-08] MEDS: DOCUSATE SODIUM 50 MG/SENNA 8.6 MG TAB PO SCH ×2 (08:01→20:56)
[2017-07-08] MEDS: MAGNESIUM HYDROXIDE SUSP 30 ML CUP PO SCH ×2 (08:01→20:56)
[2017-07-08] MEDS: VALPROIC ACID SYRUP 250 MG/5 ML UDC PO SCH ×2 (08:01→20:57)
[2017-07-08] MEDS: CHLORHEXIDINE 0.12% (ORAL KIT) 15 ML CUP MT SCH (08:02)
[2017-07-08] MEDS: BACITRACIN TOP OINT 15 GM TUBE TOPICAL SCH ×2 (08:02→21:15)
[2017-07-08] MEDS ORDERED: oxyCODONE/ACETAMINOPHEN 5 MG/325 MG TAB PO PRN (11:00)
[2017-07-08] MEDS ORDERED: MORPHINE SULFATE 2 MG/ML INJ IV PUSH PRN (11:00)
[2017-07-08] MEDS: CEFEPIME INJ 2,000 MG in SODIUM CHLORIDE 0.9% INJ 100 ML IV SCH ×2 (11:46→23:54)
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
[2017-07-08] MEDS: ENOXAPARIN SODIUM 40 MG/0.4 ML SYRINGE SQ SCH (13:27)
[2017-07-08] MEDS: HALOPERIDOL LACTATE 5 MG/ML AMP IV PRN ×2 (13:58→23:54)
[2017-07-08] MEDS: SODIUM CHLORIDE 23.4% INJ 188 MEQ in SODIUM CHLOR 0.9% 1000 ML INJ 1,000 ML IV SCH (14:00)
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
[2017-07-08] MEDS: FAMOTIDINE 20 MG TAB PO SCH (21:00)
[2017-07-09] VITALS (14 sets, daily range): BP systolic 114–126; BP diastolic 58–67; PULSE 54–95; RESP 22–28; TEMP 98.5–99; O2SAT 96–100
[2017-07-09] MEDS: CHLORHEXIDINE GLUCONATE 2 % 1 PACK (2 CLOTHS) TOP SCH (00:17)
[2017-07-09] MEDS: QUEtiapine FUMARATE 100 MG TAB PO SCH ×3 (05:03→21:26)
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
[2017-07-09 06:59] LABS: AUTOMATED NEUTROPHIL # 10.9 TH/MM3 (1.8-7.7); BASOPHIL # 0.1 TH/MM3 (0-0.2); BASOPHIL % 0.5 % (0.0-2.0); EOSINOPHIL % 0.2 % (0.0-4.0); HEMATOCRIT 28.3 % (39.0-51.0); HEMOGLOBIN 9.7 GM/DL (13.0-17.0); LYMPH % 15.3 % (9.0-44.0); LYMPHOCYTE # 2.2 TH/MM3 (1.0-4.8); MEAN CELL VOLUME 91.7 FL (80.0-100.0); MEAN CORPUSCULAR HEMOGLOBIN 31.3 PG (27.0-34.0); MEAN CORPUSCULAR HGB CONC 34.2 % (32.0-36.0); MEAN PLATELET VOLUME 8.6 FL (7.0-11.0); MONO % 9.1 % (0.0-8.0); MONOCYTE # 1.3 TH/MM3 (0-0.9); NEUT % 74.9 % (16.0-70.0); PLATELET COUNT 374 TH/MM3 (150-450); RED BLOOD COUNT 3.09 MIL/MM3 (4.50-5.90); RED CELL DISTRIBUTION WIDTH 13.2 % (11.6-17.2); WHITE BLOOD COUNT 14.5 TH/MM3 (4.0-11.0)
[2017-07-09 07:18] LABS: BICARBONATE 21.2 MEQ/L (21.0-32.0); CALCIUM 8.7 MG/DL (8.5-10.1); CREATININE 0.6 MG/DL (0.60-1.30)
--- NOTE | 2017-07-09 08:41 | HHI.PR ---
Neuropsych Emotional Emotional: UnabletoAssess: Emotional, Anxious/Fearful, Depressed/Sad, Hostile/ Resentful, Irritable/Angry/Frustrate, Labile, Constricted/Blunted Behavior Behavior: Mild: Impulsive/Agitated, Unable to Asses: Behavior, Coping/ Acceptance, Cooperative w/ Treatment, Motivation, Frustration Tolerance/[place], Suicidal/Homicidal Risk Cognitive Cognitive: Unable to Asses: Cognitive, Attention/Concentration, Confused/ Orientation, Insight/Awareness, Judgement/Problem-Solving, Memory Psychosocial Psychosocial: Moderate: Psychosocial, Family/Other Adjustment, Realistic Expectation, Unable to Asses: Self-Esteem/Confidence Progress Notes/Response to Tx Contents of Sessions: Adjustment, Level of Consciousness Time with Patient: 30 minutes Premorbid psychological status Premorbid Cognitive, Emotional and Behavioral Status: Stable. The patient has high school years of education and a solid work history prior to this injury. The patient has no prior psychiatric difficulties, as described above. Substance abuse history includes known alcohol consumption. Behavioral Reactions of Patient and Family/Support System: Stable. The patient s family is experiencing ongoing issues of adjustment given the nature of the injury, and this aspect of recovery will require ongoing monitoring. Emotional/Behavioral Status of Patient and Family/Support System: Stable. Pertinent issues, if appropriate to this patients clinical care, are described in detail above. Maximizing acute care outcome It is recommended that the patient be monitored for emergent behavioral impulsivity as the medical condition evolves. This patients neuropathological challenges may limit his rehabilitation potential going forward, and these challenges will require specialized therapeutic skills to maximize outcome. Additionally, the patients family is experiencing ongoing issues of adjustment given the traumatic nature of the injury, and they may benefit from ongoing psychological assistance. At this point in the recovery process, the patient does not have cognitive capacity as the patient is unable to understand a situation and its likely consequences, nor is he able to manipulate information rationally. Cognitive capacity will be assessed throughout the recovery process. Anticipated Problems Ongoing areas of concern will include behavioral impulsivity, lack of insight and judgment, which is expected to improve with time and treatment. Presently , the patient is intubated and sedated. Given the severity of the patient's injuries it is my clinical opinion that this patient will be unable to return to any type of productive employment for at least one year, perhaps longer and likely never. This patient is not considered safe to discharge home without supervision. Treatment Plan This clinician will continue to follow with you throughout the course of this patients critical care treatment, and I will be available to meet with the patients family/support system to facilitate their understanding and the ongoing care of their family member. The goals of neuropsychological intervention shall be both educational and supportive to the family/support system as is deemed clinically appropriate. [facility] Level: I:No response-total assistance Disinhibition Score: 21.00 Aggression Score: 14.00 Lability Score: 14.00 Agitated Behavior Total Score: 18 Impression 41 year old male s/p TBI 2T [facility] [place]. Diagnosis: (1) Major neurocognitive disorder as late effect of traumatic brain injury with behavioral disturbance Progress Note Narrative PTD 10. The patient has been increasingly agitated, with ABS today 18 (21, 14, 14) while yesterday is 16T. He was prescribed Seroquel 100 q8H but had not received it. He is on VPA 250 BID and Haldol PRN (last dose 2354). He is [place] IV. Trauma team consensus is to increase VPA to 500 TID, unless medically contraindicated. I will follow. Mundo Cespedes PhD Jul 09, 2017 8:41 am
[2017-07-09] MEDS: LACTULOSE SYRUP 20 GM/30 ML CUP PO SCH (09:02)
[2017-07-09] MEDS: VALPROIC ACID SYRUP 250 MG/5 ML UDC PO SCH (09:02)
[2017-07-09] MEDS: MAGNESIUM HYDROXIDE SUSP 30 ML CUP PO SCH ×2 (09:02→21:00)
[2017-07-09] MEDS: FAMOTIDINE 20 MG TAB PO SCH ×2 (09:02→21:26)
[2017-07-09] MEDS: DOCUSATE SODIUM 50 MG/SENNA 8.6 MG TAB PO SCH ×2 (09:02→21:00)
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
[2017-07-09] MEDS: VALPROATE INJ 500 MG in SODIUM CHLORIDE 0.9% INJ 100 ML IV SCH ×2 (13:32→21:33)
[2017-07-09] MEDS: SODIUM CHLOR 0.9% 1000 ML INJ 1,000 ML IV SCH (13:33)
[2017-07-09] MEDS: ENOXAPARIN SODIUM 40 MG/0.4 ML SYRINGE SQ SCH (13:33)
[2017-07-09] MEDS: CEFEPIME INJ 2,000 MG in SODIUM CHLORIDE 0.9% INJ 100 ML IV SCH ×2 (13:33→23:40)
[2017-07-09] MEDS: BACITRACIN TOP OINT 15 GM TUBE TOPICAL SCH ×2 (13:34→21:27)
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
[2017-07-10] VITALS (13 sets, daily range): BP systolic 119–153; BP diastolic 66–77; PULSE 52–67; RESP 17–26; TEMP 98.1–99; O2SAT 93–100
[2017-07-10] MEDS: CHLORHEXIDINE GLUCONATE 2 % 1 PACK (2 CLOTHS) TOP SCH (03:41)
[2017-07-10] MEDS: VALPROATE INJ 500 MG in SODIUM CHLORIDE 0.9% INJ 100 ML IV SCH ×3 (05:43→20:50)
[2017-07-10] MEDS: QUEtiapine FUMARATE 100 MG TAB PO SCH ×3 (05:43→20:44)
[2017-07-10] MEDS: MAGNESIUM HYDROXIDE SUSP 30 ML CUP PO SCH ×2 (09:00→20:44)
[2017-07-10] MEDS: DOCUSATE SODIUM 50 MG/SENNA 8.6 MG TAB PO SCH ×2 (09:00→20:44)
[2017-07-10] MEDS: BACITRACIN TOP OINT 15 GM TUBE TOPICAL SCH ×2 (09:00→20:52)
[2017-07-10] MEDS: LACTULOSE SYRUP 20 GM/30 ML CUP PO SCH (09:00)
[2017-07-10] MEDS: SODIUM CHLOR 0.9% 1000 ML INJ 1,000 ML IV SCH ×2 (09:07→22:15)
[2017-07-10] MEDS: CEFEPIME INJ 2,000 MG in SODIUM CHLORIDE 0.9% INJ 100 ML IV SCH ×2 (09:21→23:30)
[2017-07-10] MEDS: FAMOTIDINE 20 MG TAB PO SCH ×2 (09:21→20:44)
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
[2017-07-10 13:18] LABS: HEMATOCRIT 31.2 % (39.0-51.0); HEMOGLOBIN 10.8 GM/DL (13.0-17.0); MEAN CELL VOLUME 91.7 FL (80.0-100.0); MEAN CORPUSCULAR HEMOGLOBIN 31.7 PG (27.0-34.0); MEAN CORPUSCULAR HGB CONC 34.6 % (32.0-36.0); MEAN PLATELET VOLUME 8.3 FL (7.0-11.0); PLATELET COUNT 346 TH/MM3 (150-450); RED BLOOD COUNT 3.41 MIL/MM3 (4.50-5.90); RED CELL DISTRIBUTION WIDTH 12.8 % (11.6-17.2); WHITE BLOOD COUNT 9.5 TH/MM3 (4.0-11.0)
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
[2017-07-10 13:49] LABS: BICARBONATE 22.9 MEQ/L (21.0-32.0); CALCIUM 8.2 MG/DL (8.5-10.1); CREATININE 0.51 MG/DL (0.60-1.30)
[2017-07-10] MEDS: ENOXAPARIN SODIUM 40 MG/0.4 ML SYRINGE SQ SCH (14:26)
[2017-07-10] MEDS: POTASSIUM CHLORIDE 20 MEQ PWD PACKET PO PRN (14:26)
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
[2017-07-10] MEDS: POTASSIUM CHLOR 20 MEQ PREMIX 100 ML IV PRN (16:18)
[2017-07-11] VITALS: BP 152/70; PULSE 56; RESP 17; TEMP 98; O2SAT 94
[2017-07-11] MEDS: HALOPERIDOL LACTATE 5 MG/ML AMP IV PRN ×2 (01:51→20:47)
[2017-07-11 03:48] LABS: BASOPHIL # 0.1 TH/MM3 (0-0.2); EOSINOPHIL # 0.1 TH/MM3 (0-0.4); EOSINOPHIL % 1.2 % (0.0-4.0); HEMATOCRIT 32.6 % (39.0-51.0); HEMOGLOBIN 11.5 GM/DL (13.0-17.0); LYMPH % 22.2 % (9.0-44.0); LYMPHOCYTE # 2.3 TH/MM3 (1.0-4.8); MEAN CELL VOLUME 89.5 FL (80.0-100.0); MEAN CORPUSCULAR HEMOGLOBIN 31.5 PG (27.0-34.0); MEAN CORPUSCULAR HGB CONC 35.2 % (32.0-36.0); MEAN PLATELET VOLUME 8.1 FL (7.0-11.0); MONO % 8.1 % (0.0-8.0); MONOCYTE # 0.8 TH/MM3 (0-0.9); NEUT % 67.5 % (16.0-70.0); PLATELET COUNT 378 TH/MM3 (150-450); RED BLOOD COUNT 3.64 MIL/MM3 (4.50-5.90); RED CELL DISTRIBUTION WIDTH 12.8 % (11.6-17.2); WHITE BLOOD COUNT 10.3 TH/MM3 (4.0-11.0)
[2017-07-11] MEDS: CHLORHEXIDINE GLUCONATE 2 % 1 PACK (2 CLOTHS) TOP SCH (04:00)
[2017-07-11 04:21] LABS: ALBUMIN 2.6 GM/DL (3.4-5.0); AST (GOT) 28 U/L (15-37); BICARBONATE 22.1 MEQ/L (21.0-32.0); BLOOD UREA NITROGEN 16 MG/DL (7-18); CALCIUM 8.5 MG/DL (8.5-10.1); CHLORIDE 110 MEQ/L (98-107); GLOMERULAR FILTRATION RATE 184 ML/MIN (>89); GLUCOSE,RANDOM 77 MG/DL (74-106); SODIUM (NA) 142 MEQ/L (136-145)
[2017-07-11 04:22] LABS: ALT (GPT) 59 U/L (12-78)
[2017-07-11 04:24] LABS: ALKALINE PHOSPHATASE 88 U/L (45-117); TOTAL BILIRUBIN ADULT 0.7 MG/DL (0.2-1.0); TOTAL PROTEIN 6.7 GM/DL (6.4-8.2)
[2017-07-11] MEDS: VALPROATE INJ 500 MG in SODIUM CHLORIDE 0.9% INJ 100 ML IV SCH (06:08)
[2017-07-11] MEDS: QUEtiapine FUMARATE 100 MG TAB PO SCH ×3 (06:08→20:47)
[2017-07-11] MEDS: MAGNESIUM HYDROXIDE SUSP 30 ML CUP PO SCH ×2 (07:46→20:47)
[2017-07-11] MEDS: LACTULOSE SYRUP 20 GM/30 ML CUP PO SCH (07:46)
[2017-07-11] MEDS: DOCUSATE SODIUM 50 MG/SENNA 8.6 MG TAB PO SCH ×2 (07:47→20:47)
[2017-07-11 08:00] VITALS: BP 115/62; PULSE 68; RESP 20; TEMP 97.5; O2SAT 97
[2017-07-11 08:37] VITALS: O2SAT 94
[2017-07-11] MEDS: FAMOTIDINE 20 MG TAB PO SCH ×2 (09:25→21:00)
[2017-07-11] MEDS: BACITRACIN TOP OINT 15 GM TUBE TOPICAL SCH ×2 (09:26→20:52)
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
[2017-07-11] MEDS: CEFEPIME INJ 2,000 MG in SODIUM CHLORIDE 0.9% INJ 100 ML IV SCH ×2 (11:12→23:23)
[2017-07-11 12:00] VITALS: BP 122/66; PULSE 70; RESP 20; TEMP 98; O2SAT 97
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
[2017-07-11] MEDS: VALPROIC ACID 250 MG CAP PO SCH ×2 (15:09→20:47)
[2017-07-11] MEDS: ENOXAPARIN SODIUM 40 MG/0.4 ML SYRINGE SQ SCH (15:12)
[2017-07-11 16:00] VITALS: BP 137/66; PULSE 85; RESP 20; TEMP 97.6; O2SAT 96
[2017-07-11] MEDS: oxyCODONE/ACETAMINOPHEN 10 MG/325 MG TAB PO PRN ×2 (17:05→20:48)
[2017-07-11] MEDS ORDERED: POTASSIUM CHLORIDE 10 MEQ CONTROLLED RELEASE TAB PO ONE (19:00)
[2017-07-11 20:00] VITALS: BP 166/94; PULSE 65; RESP 20; TEMP 97.8; O2SAT 98
[2017-07-11] MEDS ORDERED: NICOTINE 21 MG/24 HR PATCH T-DERMAL SCH (20:00)
[2017-07-12] VITALS: BP 113/59; PULSE 58; RESP 20; O2SAT 96
[2017-07-12] MEDS: oxyCODONE/ACETAMINOPHEN 10 MG/325 MG TAB PO PRN (02:05)
[2017-07-12] MEDS: VALPROIC ACID 250 MG CAP PO SCH ×2 (04:59→14:14)
[2017-07-12] MEDS: QUEtiapine FUMARATE 100 MG TAB PO SCH ×2 (04:59→14:14)
[2017-07-12] MEDS ORDERED: WALKER WHEELS/F1 MIS (06:59)
[2017-07-12] MEDS: LACTULOSE SYRUP 20 GM/30 ML CUP PO SCH (07:40)
[2017-07-12] MEDS: MAGNESIUM HYDROXIDE SUSP 30 ML CUP PO SCH (07:41)
[2017-07-12 08:00] VITALS: BP 107/55; PULSE 58; RESP 18; TEMP 98.3; O2SAT 95
[2017-07-12] MEDS: DOCUSATE SODIUM 50 MG/SENNA 8.6 MG TAB PO SCH (08:38)
[2017-07-12] MEDS: FAMOTIDINE 20 MG TAB PO SCH (08:38)
[2017-07-12] MEDS: BACITRACIN TOP OINT 15 GM TUBE TOPICAL SCH (08:38)
[2017-07-12 08:43] VITALS: O2SAT 94
[2017-07-12 12:00] VITALS: BP 117/65; PULSE 82; RESP 19; TEMP 97.6; O2SAT 98
[2017-07-12] MEDS ORDERED: OXYC1TAB63 PO (12:25)
[2017-07-12] MEDS ORDERED: PERI PO (12:25)
[2017-07-12] MEDS ORDERED: QUET1TAB8 PO (12:25)
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
[2017-07-12] MEDS: ENOXAPARIN SODIUM 40 MG/0.4 ML SYRINGE SQ SCH (14:15)
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
[2017-07-12] MEDS ORDERED: REMOVE OLD NICODERM (NICOTINE) PATCH T-DERMAL SCH (20:00)
== END 2017-07-12 14:50 | disposition home or self-care (01) | DRG 957 ==
LOC: NEPI 19:53 → NEDH 20:41 → EDBD 20:41 → N03B 21:06 → N07A 07-10 20:01
PROVIDERS: ADMIT Surgery Trauma Surgery; ATTEND Surgery Trauma Surgery
PROC: 5A1955Z Respiratory Ventilation, Greater than 96 Consecutive Hours (ICD-10-PCS; 2017-06-29)
PROC: 0BH17EZ Insertion of Endotracheal Airway into Trachea, Via Natural or Artificial Opening (ICD-10-PCS; 2017-06-29)
PROC: 0VQ50ZZ Repair Scrotum, Open Approach (ICD-10-PCS; 2017-06-30)
PROC: 0XQC0ZZ Repair Left Elbow Region, Open Approach (ICD-10-PCS; principal; 2017-07-03)
DX: S06.5X0A Traumatic subdural hemorrhage without loss of consciousness, initial encounter (principal); J96.01 Acute respiratory failure with hypoxia; S32.592A Other specified fracture of left pubis, initial encounter for closed fracture; G93.6 Cerebral edema; J15.6 Pneumonia due to other Gram-negative bacteria; G93.40 Encephalopathy, unspecified; S31.31XA Laceration without foreign body of scrotum and testes, initial encounter; D64.9 Anemia, unspecified; F02.81 Dementia in other diseases classified elsewhere, unspecified severity, with behavioral disturbance; S06.340A Traumatic hemorrhage of right cerebrum without loss of consciousness, initial encounter; S02.19XA Other fracture of base of skull, initial encounter for closed fracture; S02.69XB Fracture of mandible of other specified site, initial encounter for open fracture; R40.2412 Glasgow coma scale score 13-15, at arrival to emergency department; R45.1 Restlessness and agitation; V29.9XXA Motorcycle rider (driver) (passenger) injured in unspecified traffic accident, initial encounter; R40.2424 Glasgow coma scale score 9-12, 24 hours or more after hospital admission; Y92.410 Unspecified street and highway as the place of occurrence of the external cause; Z78.1 Physical restraint status; R00.0 Tachycardia, unspecified; R33.9 Retention of urine, unspecified; S51.012A Laceration without foreign body of left elbow, initial encounter
CPT/HCPCS: 31500; 36600; 70450; 70486; 71045; 71260; 72125; 72170; 73070; 73120; 74177; 80048; 80053; 81001; 82805; 83735; 83930; 84100; 84132; 84295; 85007; 85025; 85027; 85610; 85730; 86850; 86900; 86901; 87040; 87070; 87077; 87086; 87186; 87205; 87493; 87641; 90471; 90715; 93005; 93306; 94002; 94003; 94150; 94640; 94664; 94667; 94668; 96374; 96375; 99291; G0390; J0690; J0692; J0696; J1580; J1630; J1650; J1953; J2250; J2270; J3010; J3480; J7030; J7070; Q9967